=== PATIENT | female | born 1990 | race Caucasian/White ===

== ENCOUNTER 2017-12-17 20:21 | Emergency (ER) | payer MEDICAID, OTHER ==
[~2017-12-17] VITALS: Ht 172.7 cm; Wt 109.0 kg
[~2017-12-17 20:21] MED LIST: AMOX500T PO; Z.0.NO CURRENT MEDS
[2017-12-17 20:44] VITALS: BP 133/67; PULSE 114; RESP 20; TEMP 101; O2SAT 98
[2017-12-17] MEDS ORDERED: birth control (20:44)
[2017-12-17] MEDS ORDERED: IBUPROFEN 600 MG TAB PO ONE (21:45)
[2017-12-17] MEDS ORDERED: DEXAMETHASONE SOD PHOS 20 MG/5 ML VIAL IM ONE (21:45)
[2017-12-17 22:50] VITALS: BP 128/59; PULSE 101; RESP 15; TEMP 99; O2SAT 97
[2017-12-17] MEDS ORDERED: AMOX875T PO (23:22)
--- NOTE | 2017-12-17 23:22 | PD ---
HPI Chief Complaint: ENT Complaint Time Seen by Provider: 21:30 Travel History International Travel<30 days: No Contact w/Intl Traveler<30days: No Traveled to known affect area: No History of Present Illness HPI Patient is a 27-year-old female who comes in complaining of sore throat, fever, body aches. She says it started last night with a sore throat. She says that she started to have the body aches and fevers and has progressively gotten worse. She took some Tylenol, which is helped with her fevers. She says she has had a slight cough. She denies any nasal congestion. She denies any difficulty breathing or swallowing. Severity is moderate. PFSH Past Medical History Medical History: Denies Significant Hx Diminished Hearing: No Immunizations Current: Yes Tetanus Vaccination: Unknown Influenza Vaccination: No ?: Not Para: 0 Past Surgical History Surgical History: No Previous Surgery Social History Alcohol Use: No Tobacco Use: No Substance Use: No Allergies-Medications (Allergen,Severity, Reaction): Coded Allergies: Sulfa (Sulfonamide Antibiotics) (Unverified Allergy, Severe, RASH, 12/17/17) Reported Meds & Prescriptions Reported Meds & Active Scripts Active Amoxicillin 875 Mg Tab 875 Mg PO BID 10 Days Reported [ control] Review of Systems Except as stated in HPI: all other systems reviewed are Neg General / Constitutional: Positive: Fever, Chills HENT: Positive: Sore Throat Cardiovascular: No: Chest Pain or Discomfort Respiratory: Positive: Cough, No: Shortness of Breath Gastrointestinal: No: Nausea, Vomiting Musculoskeletal: Positive: Myalgias Skin: No Rash, No Change in Pigmentation Neurologic: No: Weakness, Dizziness Physical Exam Narrative GENERAL: Awake and alert, in no acute distress. SKIN: Focused skin assessment warm/dry. No wounds or signs of infection. HEAD: Atraumatic. Normocephalic. EYES: Pupils equal and round. No scleral icterus. ENT: Tonsils enlarged with exudates present. Uvula is midline. Mucous membranes pink and moist. NECK: Trachea midline. No JVD. Anterior cervical lymphadenopathy present. CARDIOVASCULAR: Regular rate and rhythm. No murmur appreciated. RESPIRATORY: No accessory muscle use. Clear to auscultation. Breath sounds equal bilaterally. GASTROINTESTINAL: Abdomen soft, non-tender, nondistended. MUSCULOSKELETAL: No obvious deformities. No clubbing. No cyanosis. No edema. NEUROLOGICAL: Awake and alert. No obvious cranial nerve deficits. Motor grossly within normal limits. Normal speech. PSYCHIATRIC: Appropriate mood and affect; insight and judgment normal. Data Data Last Documented VS Vital Signs Date Time Temp Pulse Resp B/P (MAP) Pulse Ox O2 Delivery O2 Flow Rate FiO2 12/17/17 23:43 12/17/17 22:50 99.0 101 15 97 Room Air Orders Orders Ed Urine Pregnancytest Poc (12/17/17 21:33) Group A Rapid Strep Screen (12/17/17 21:33) Ibuprofen (Motrin) (12/17/17 21:45) Dexamethasone Inj (Decadron Inj) (12/17/17 21:45) Ed Discharge Order (12/17/17 23:22) [facility] Medical Decision Making Medical Screen Exam Complete: Yes Emergency Medical Condition: Yes Medical Record Reviewed: Yes Differential Diagnosis Strep pharyngitis versus viral pharyngitis versus URI Narrative Course Patient is a 27-year-old female who comes in complaining of sore throat and body aches. She was tachycardic and febrile on arrival. Exam does show enlarged tonsils with exudates. Patient given ibuprofen, Decadron. Rapid strep test is positive. She will be discharged with a prescription for amoxicillin. Advised to continue to take ibuprofen as needed for pain and fever. Advised return to the ED as needed for any worsening symptoms. Diagnosis Primary Impression: Strep pharyngitis Patient Instructions: General Instructions, Strep Throat (ED) Additional Instructions: Take all of your antibiotic. Take ibuprofen for pain or fever. Follow-up with a primary care doctor. Return to the ED as needed for any worsening symptoms. Scripts Amoxicillin (Amoxicillin) 875 Mg Tab 875 MG PO BID for Infection for 10 Days, #20 TAB 0 Refills Prov: Esperanza Moy MD 12/17/17 Disposition: 01 DISCHARGE HOME Condition: Stable Esperanza Moy MD Dec 17, 2017 23:22
== END 2017-12-17 23:45 | disposition home or self-care (01) ==
LOC: NEPD 20:21
DX: J02.0 Streptococcal pharyngitis (principal); R05 Cough; Z88.2 Allergy status to sulfonamides
CPT/HCPCS: 84703; 87880; 96372; 99283; J1100